=== PATIENT | female | born 1990 | race Two or more races ===

== ENCOUNTER 2018-06-08 01:46 | Emergency (ER) | payer SELFPAY ==
[~2018-06-08] VITALS: Ht 167.6 cm; Wt 54.9 kg
[2018-06-08 01:56] VITALS: BP 110/70; Ht 167.6 cm; Wt 54.9 kg
== END 2018-06-08 03:29 | disposition left against medical advice (07) ==
LOC: ED 01:46
DX: Z53.21 Procedure and treatment not carried out due to patient leaving prior to being seen by health care provider (principal)
CPT/HCPCS: G0480